=== PATIENT | male | born 1985 | race Caucasian/White ===

== ENCOUNTER 2022-07-29 02:35 | Emergency (ER) | payer MEDICAID ==
[~2022-07-29] VITALS: Ht 177.8 cm; Wt 104.3 kg
[~2022-07-29 02:35] MED LIST: ALBU0.0939 IH
[2022-07-29 02:38] VITALS: BP 163/100
--- NOTE | 2022-07-29 02:38 | NUR ---
TO BED AMBULATORY
[2022-07-29 03:25] LABS: BASOPHILS # (AUTO) 0.1 K/uL (0.00-0.22); EOSINOPHILS # (AUTO) 0.3 K/uL (0-0.4); EOSINOPHILS % (AUTO) 2.4 % (0.0-4.0); HEMATOCRIT 41.9 % (36-52); HEMOGLOBIN 15.2 g/dL (12.0-18.0); LYMPHOCYTES # (AUTO) 4.6 K/uL (2.0-11.5); LYMPHOCYTES % (AUTO) 40.5 % (20.5-51.1); MEAN CORPUSCULAR HEMOGLOBIN 31 pg (27-31); MEAN CORPUSCULAR HGB CONC 36 g/dL (33-37); MEAN CORPUSCULAR VOLUME 85.2 fL (80-94); MONOCYTES # (AUTO) 0.5 K/uL (0.8-1.0); MONOCYTES % (AUTO) 4.5 % (1.7-9.3); NEUTROPHILS # (AUTO) 5.9 K/uL (1.8-7.7); NEUTROPHILS % (AUTO) 51.6 % (42.2-75.2); PLATELET COUNT (AUTO) 243 K/uL (140-450); RED BLOOD CELL COUNT(AUTO) 4.92 MIL/uL (4.20-6.10); RED CELL DISTRIBUTION WIDTH 13.6 % (11.6-13.7); WHITE BLOOD COUNT (AUTO) 11.3 K/uL (4.8-10.8)
--- NOTE | 2022-07-29 03:30 | NUR ---
SEEN AND EXAMINED BY OXANA
[2022-07-29 03:40] LABS: CHLORIDE 105 mmol/L (98-107); POTASSIUM 3.4 mmol/L (3.5-5.1); SODIUM SERUM 141 mmol/L (136-145)
[2022-07-29 03:55] LABS: ALBUMIN 3.9 g/dL (3.4-5.0); ANION GAP 12.6 (8-16); ASPARTATE AMINOTRANSFERASE 16 U/L (15-37); CARBON DIOXIDE 26.9 mmol/L (21-32); CREATININE 0.9 mg/dL (0.6-1.3); GFR ARICAN-AMERICAN 124 mL/min (>90); GLUCOSE 115 mg/dL (74-106); TOTAL BILIRUBIN 0.2 mg/dL (0.0-1.0); UREA NITROGEN, BLOOD 18 mg/dL (7-18)
[2022-07-29] MEDS ORDERED: POTASSIUM CHLORIDE 10 MEQ TABER PO ONE (05:25)
--- NOTE | 2022-07-29 06:00 | NUR ---
ALL RESULTS BACK AND NOTED BY ERMD AND FOR D/C
[2022-07-29 06:15] VITALS: BP 133/89
--- NOTE | 2022-07-29 06:15 | NUR ---
Patient discharged with v/s stable. Written and verbal after care instructions given and explained. Patient verbalized understanding. Ambulatory with steady gait. All questions addressed prior to discharge. Advised to follow up with PMD.
== END 2022-07-29 06:15 | disposition home or self-care (01) ==
LOC: MED 02:35
DX: R07.9 Chest pain, unspecified (principal); J45.909 Unspecified asthma, uncomplicated; Z98.890 Other specified postprocedural states
CPT/HCPCS: 36415; 71045; 80053; 84484; 85025; 93005; 99285

== ENCOUNTER 2022-08-26 09:37 | Emergency (ER) | payer MEDICAID ==
[~2022-08-26] VITALS: Ht 175.3 cm; Wt 111.6 kg
[2022-08-26 09:41] VITALS: BP 137/104
--- NOTE | 2022-08-26 10:00 | NUR ---
36M BIB SELF ED WITH C/O TROUBLE BREATHING DUE TO ASTHMA SINCE LAST NIGHT. PT REPORTS RAN OUT OF ALBUTEROL INHALER YESTERDAY. PMH:ASTHMA NKDA
--- NOTE | 2022-08-26 10:21 | NUR ---
MEDICAL STUDENT AT BEDSIDE.
[2022-08-26] MEDS ORDERED: predniSONE 20 MG TAB PO ONE (10:30)
[2022-08-26] MEDS ORDERED: ALBUTEROL HFA MDI 90 MCG/ACTUATION 8 GM INH ONE (10:30)
--- NOTE | 2022-08-26 10:47 | NUR ---
DR BAUER AT BEDSIDE.
--- NOTE | 2022-08-26 10:47 | NUR ---
RT AT BEDSIDE.
--- NOTE | 2022-08-26 10:50 | NUR ---
MDI TREATMENT GIVEN, TOLERATED WELL
--- NOTE | 2022-08-26 11:21 | NUR ---
TREE AND INFLUENZA SWABED AND WALKED TO THE LAB.
[2022-08-26] MEDS ORDERED: ALBU0.0912 IH (12:04)
[2022-08-26] MEDS ORDERED: PRED20TA5 PO (12:04)
[2022-08-26 12:13] VITALS: BP 159/90
--- NOTE | 2022-08-26 12:14 | NUR ---
Patient discharged with v/s stable. Written and verbal after care instructions given and explained. Patient alert, oriented and verbalized understanding of instructions. Ambulatory with steady gait. All questions addressed prior to discharge. ID band removed. Patient advised to follow up with PMD. Rx of ALBUTEROL SULFATE, PREDNISONE given. Opportunity to ask questions provided and answered.
--- NOTE | 2022-08-26 12:15 | NUR ---
The patient's care was reviewed and supervised by Josefa Sánchez, RN, RN.
== END 2022-08-26 12:13 | disposition home or self-care (01) ==
LOC: MED 09:37
DX: J45.901 Unspecified asthma with (acute) exacerbation (principal); Z20.822 Contact with and (suspected) exposure to COVID-19; B34.9 Viral infection, unspecified; F12.90 Cannabis use, unspecified, uncomplicated; F14.90 Cocaine use, unspecified, uncomplicated; Z98.890 Other specified postprocedural states
CPT/HCPCS: 87426; 87804; 94664; 99283; J7512